=== PATIENT | female | born 1935 | race Caucasian/White ===

== ENCOUNTER 2025-09-12 16:51 | Emergency (ER) | payer MEDICARE, MEDICAID, SELFPAY ==
[2025-09-12 16:51] VITALS: BP 122/87; PULSE 98; RESP 17; TEMP 36.6; O2SAT 98; BMI 51.5
--- OUTSIDE RECORDS SUMMARY | 2025-09-12 16:55 | XMS_ITS | Clinical Summary ---
[facility] Organization [facility] Address [address] Ferrer: Epic Prelude ADT [place] [address] Care Team Providers Care Chain Sales Consultant Name Role Phone Other, Sgf Primary Care Provider Unavailabl e Allergies Active Allergy Reactions Criticality Noted Date Comments Amoxicillin Nausea and Vomiting Low 11/11/2010 Codeine Rash,Nausea and Vomiting Low 11/11/2010 Penicillins Hives High 11/11/2010 Medications acetaminophen (TYLENOL) 325 mg tablet Take 325 mg by mouth every 4 hours as needed. Active levothyroxine 50 mcg tablet Take 50 mcg by mouth daily in the morning. Active clonazePAM (KlonoPIN) 0.5 mg Tablet Take 0.5 mg by mouth. Active apixaban (Eliquis) 5 mg tablet Take by mouth 2 times daily. Active Active Problems Problem Noted Date Diagnosed Date UTI (urinary tract infection) 06/13/2013 Atrial flutter 06/12/2013 Orthostatic hypotension 06/12/2013 Peripheral edema 03/23/2011 Anxiety 01/07/2011 Depression 01/07/2011 Unspecified essential hypertension 01/07/2011 Unspecified disorder of lipoid metabolism 2010 Immunizations Immunization Administration Dates Next Due (PNEUMOVAX 23)(50 YRS UP) PN EUMOCOCCAL POLYSACCHARIDE (PPV23) 0.5 ML, IM 05/07/2008 (TDVAX)(7 YRS UP) TETANUS AN D DIPHTHERIA TOXOIDS, ADSORBED (2 LF OF TETANUS TOXOID AND 2 LF OF DIPHTHERIA TOXOID), 0.5ML (PF), IM 02/24/2001 Influenza Seasonal Unspecified Formulation IM Family History Medical History Relation Name Comments Diabetes Brother 1 Heart Disease Brother 1 High Cholesterol Brother 1 Other Brother 1 osteo arthritis Heart Disease Brother 2 High Cholesterol Brother 2 Other Brother 2 osteo arthritis Thyroid Disease Brother 2 Asthma Brother 3 Diabetes Brother 3 Other Brother 3 osteo arthritis Healthy Daughter 1 Hypertension Daughter 1 Healthy Daughter 2 Healthy Daughter 3 Hypertension Daughter 3 Cancer Father Heart Disease Father Hypertension Father Stroke Maternal Grandmother Asthma Mother Cancer Mother Diabetes Mother Other Mother osteo arthritis Stroke Mother Breast Cancer Sister 1 Diabetes Sister 1 Hypertension Sister 1 Other Sister 1 osteo arthritis Breast Cancer Sister 2 Diabetes Sister 2 Other Sister 2 osteo arthritis Relation Name Status Comments Brother 1 Alive Brother 2 Alive Brother 3 Alive Daughter 1 Alive Daughter 2 Alive Daughter 3 Alive Father Maternal Grandfather Maternal Grandmother Mother Paternal Grandfather Paternal Grandmother Sister 1 Alive Sister 2 Alive Son Social History Tobacco Use Types Packs/Day Years Used Date Smoking Tobacco: Former Cigarettes Q uit: 04/11/1965 Smokeless Tobacco: Never Tobacco Cessation:Counseling Given: Not Answered Alcohol Use Standard Drinks/Week Comments No 0 (1 standard drink = 0.6 oz pur e alcohol) Comments Unknown Sex and Gender Information Value Date Recorded Sex Assigned at Not on file 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 Gender Identity Not on file Sexual Orientation Not on file Last Filed Vital Signs Vital Sign Reading Time Taken Comments Blood Pressure 112/68 10/19/2023 10:33 AM TOP FRAME FITTER Pulse - - Temperature - - Respiratory Rate - - Oxygen Saturation - - Inhaled Oxygen Concentration - - Weight 101.6 kg (224 lb) 10/19/2023 10: 33 AM TOP FRAME FITTER pt reported, pt is unable to stand on scale Height 161.3 cm (5' 3.5 ) 10/19/2023 10 :33 AM TOP FRAME FITTER Body Mass Index 39.06 10/19/2023 10:33 AM TOP FRAME FITTER Plan of Treatment Health Maintenance Due Date Last Done Comments ZOSTER VACCINE (1 of 2) 1987 DTAP/TDAP/TD VACCINES (1 - Tdap) 02/25/2001 02/25/20 OSTEOPOROSIS SCREENING 2002 PNEUMOCOCCAL VACCINE 50+ YEARS (2 of 2 - PCV) 05/07/20 09 05/07/2008 RSV VACCINE (60+ or ) (1 - 1-dose 75+ series) 2012 INFLUENZA VACCINE (#1) 2025 08/28/2009 Insurance [place]ID [place] MEDICARE PART A AND B Care Teams Chain Sales Consultant Relationship Specialty Start Date End Date Other, Sgf NO ADDRESS ON FILE PCP - General 06/12/13
--- OUTSIDE RECORDS SUMMARY | 2025-09-12 16:55 | XMS_ITS | Clinical Summary ---
Author Organization [facility] Address [address] [place] [address] Care Team Providers Care Powder Coater Name Role Phone Other, Sgf Primary Care Provider Unavailabl e Allergies Active Allergy Reactions Criticality Noted Date Comments Amoxicillin Nausea and Vomiting Low 11/11/2010 Codeine Rash,Nausea and Vomiting Low 11/11/2010 Penicillins Hives High 11/11/2010 Medications acetaminophen (TYLENOL) 325 mg Oral tablet Take 325 mg by mouth every 4 hours as needed. Active GLUCOSAM & CHONDROIT-MV & MIN3 (GLUCOSAMINE &UGIRIOGAX-IX-RBY 3 ORAL) Take by mouth. Take 2 tablets by mouth once daily. Active 0mega-3 fatty acids-vitamin E (FISH OIL) 1,000 mg Oral Cap Take 1,000 mg by mouth daily. Active atenolol (TENORMIN) 50 mg Oral tabletIndications :Unspecified essential hypertension Take 1 Tab by mouth daily. 30 Tab 11 2 Active levothyroxine 50 mcg Oral tablet Take 50 mcg by mouth daily river pilot. Active ranitidine (ZANTAC) 150 mg Oral tablet Take 150 mg by mouth 2 times daily. Active clonazePAM (KLONOPIN) 0.5 mg Oral Tab Take 0.5 mg by mouth 3 times daily. Active venlafaxine SR 24 hour (EFFEXOR XR) 150 mg Oral capsule Take 150 mg by mouth daily. Active Active Problems Problem Noted Date Diagnosed Date UTI (urinary tract infection) 06/13/2013 Atrial flutter 06/12/2013 Orthostatic hypotension 06/12/2013 Peripheral edema 03/23/2011 Unspecified essential hypertension 01/07/2011 Depression 01/07/2011 Anxiety 01/07/2011 Unspecified disorder of lipoid metabolism 2010 Immunizations Immunization Administration Dates Next Due (PNEUMOVAX 23)(50 YRS UP) PN EUMOCOCCAL POLYSACCHARIDE (PPV23) 0.5 ML, IM 05/07/2008 (TDVAX)(7 YRS UP) TETANUS AN D DIPHTHERIA TOXOIDS, ADSORBED (2 LF OF TETANUS TOXOID AND 2 LF OF DIPHTHERIA TOXOID), 0.5ML (PF), IM 02/24/2001 Influenza Seasonal Unspecified Formulation IM Family History Medical History Relation Name Comments Asthma Brother 1 Diabetes Brother 1 Other Brother 1 osteo arthritis Heart Disease Brother 2 High Cholesterol Brother 2 Other Brother 2 osteo arthritis Thyroid Disease Brother 2 Diabetes Brother 3 Heart Disease Brother 3 High Cholesterol Brother 3 Other Brother 3 osteo arthritis Healthy Daughter 1 Hypertension Daughter 1 Healthy Daughter 2 Hypertension Daughter 2 Healthy Daughter 3 Cancer Father Heart Disease Father Hypertension Father Stroke Maternal Grandmother Asthma Mother Cancer Mother Diabetes Mother Other Mother osteo arthritis Stroke Mother Breast Cancer Sister 1 Diabetes Sister 1 Other Sister 1 osteo arthritis Breast Cancer Sister 2 Diabetes Sister 2 Hypertension Sister 2 Other Sister 2 osteo arthritis [...] Cigarettes Q uit: 04/11/1965 Smokeless Tobacco: Never Alcohol Use Standard Drinks/Week Comments No 0 (1 standard drink = 0.6 oz pur e alcohol) Comments No Sex and Gender Information Value Date Recorded Sex Assigned at Not on file 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 Gender Identity Not on file Sexual Orientation Not on file Last Filed Vital Signs Vital Sign Reading Time Taken Comments Blood Pressure 125/71 06/14/2013 7:08 AM CDT Pulse 57 06/14/2013 7:08 AM CDT Temperature 35.9 C (96.6 F) 06/14/2013 7:08 AM CDT Respiratory Rate 20 06/14/2013 7:08 AM CDT Oxygen Saturation 99% 06/14/2013 7:08 AM CDT Inhaled Oxygen Concentration - - Weight 107.7 kg (237 lb 6.4 oz) 06/14/2013 6:00 AM CDT Height 162.6 cm (5' 4 ) 06/12/2013 6:01 PM CDT Body Mass Index 40.75 06/12/2013 6:01 PM CDT Plan of Treatment Health Maintenance Due Date Last Done Comments ZOSTER VACCINE (1 of 2) 1987 DTAP/TDAP/TD VACCINES (1 - Tdap) 02/25/2001 02/25/20 PNEUMOCOCCAL VACCINE 50+ YEARS (2 of 2 - PCV) 05/07/2005/07/2008 OSTEOPOROSIS SCREENING 06/29/2011 06/29/2006 RSV VACCINE (60+ or ) (1 - 1-dose 75+ series) 2012 INFLUENZA VACCINE (#1) 2025 08/28/2009 Insurance CARE IMPROVEMENT PLUS [facility] Advance Directives For more information, please contact: [phone] * Full Code (Latest Code Status on File) Date Activated Date Inactivated Comments 06/12/2013 6:06 PM 06/14/2013 1:37 PM Care Teams Powder Coater Relationship Specialty Start Date End Date Other, Sgf NO ADDRESS ON FILE PCP - General 06/12/13
--- NOTE | 2025-09-12 17:20 | CTR_ITS ---
PROCEDURE INFORMATION: Exam: CT Head Without Contrast Exam date and time: 09/12/2025 6:26 PM Age: 89 years old Clinical indication: Other: Hearing voices, psych TECHNIQUE: Imaging protocol: Computed tomography of the head without contrast. Radiation optimization: All CT scans at this facility use at least one of these dose optimization techniques: automated exposure control; mA and/or kV adjustment per patient size (includes targeted exams where dose is matched to clinical indication); or iterative reconstruction. COMPARISON: No relevant prior studies available. RADIATION DOSE METRICS: Total DLP (mGy-cm): 1098.53 FINDINGS: Brain: No acute hemorrhage, edema, or mass effect. Generalized age-related cerebral volume loss. Numerous small parafalcine lipomas. No extracranial collection. Cerebral ventricles: No hydrocephalus. Paranasal sinuses: Visualized sinuses are unremarkable. No fluid levels. Mastoid air cells: Visualized mastoid air cells are well aerated. Orbital cavities: Right scleral banding. Bilateral lens replacements. Bones: Unremarkable. No acute fracture. Soft tissues: Unremarkable. CT/CT head wo con* [id number] IMPRESSION: No acute hemorrhage, edema, or mass effect.
--- NOTE | 2025-09-12 17:20 | ECG_ITS ---
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 Measurements Intervals [employer] Rate: 104 P: 0 IN: 0 QRS: 71 QRSD: 94 T: 51 QT: 377 QTc: 496 Interpretive Statements ATRIAL FIBRILLATION WITH RAPID VENTRICULAR RESPONSE LOW QRS VOLTAGE IN PRECORDIAL LEADS [QRS DEFLECTION < 1.0 mV IN CHEST LEADS] ST DEVIATION AND MODERATE T-WAVE ABNORMALITY, CONSIDER ANTEROLATERAL ISCHEMIA [-0.1+ mV T-WAVE IN V3-V6] No previous ECG available for comparison Electronically Signed On 09-12-2025 23:50:49 BURLESQUE DANCER by Elvin Lopez M.D. [email or web address]
--- NOTE | 2025-09-12 17:20 | XRR_ITS ---
PROCEDURE INFORMATION: Exam: XR Chest Exam date and time: 09/12/2025 5:29 PM Age: 89 years old Clinical indication: Other: Weakness; Additional info: Psych TECHNIQUE: Imaging protocol: Radiologic exam of the chest. Views: 1 view. COMPARISON: No relevant prior studies available. FINDINGS: Lungs: Clear lungs. Pleural spaces: No pneumothorax or pleural effusion. Heart/Mediastinum: Cardiac silhouette is normal. Bones/joints: Unremarkable. Soft tissues: Left chest wall surgical clips. XR/XR chest 1V portable [id number] IMPRESSION: No acute findings.
[2025-09-12 17:53] LABS: Hematocrit 42.1 % (36-47); Hemoglobin 13.50 g/dL (11.27-16.99); Mean Corpuscular HGB Conc 32.1 g/dL (30-55); Mean Corpuscular Hemoglobin 28.9 pg (27-33); Mean Corpuscular Volume 90.1 fl (85-98); Nucleated Red Blood Cells % 0 %; Platelet Count 197 10^3/cmm (157-399); Red Blood Count 4.67 10^6/uL (3.85-5.65); White Blood Count 4.98 10^3/uL (3.29-11.43)
[2025-09-12 18:17] LABS: Glucose Urine UA Negative (Normal); Nitrate Urine Negative (Negative); Specific Gravity, Urine 1.008 (1.005-1.030)
[2025-09-12 18:20] LABS: Add Urine Microscopic? YES
[2025-09-12 18:23] LABS: PCP Screen Urine Negative (Negative)
[2025-09-12 18:24] LABS: Acetaminophen < 5.0 ug/mL (10-30); Alanine Aminotransferase 11 U/L (0-33); Albumin Level 4.0 g/dL (3.5-5.2); Alcohol Level < 10 mg/dL (0-10); Alkaline Phosphatase 97 U/L (35-105); Anion Gap 16.4 (5-19); Aspartate Amino Transferase 19 U/L (0-32); Blood Urea Nitrogen 15 mg/dL (8-23); Calcium 9.2 mg/dL (8.5-10.5); Carbon Dioxide 26 mmol/L (22-29); Chloride 103 mmol/L (98-107); Creatinine Clr Calc Pharmacy 48.6932; Globulin 3.3 g/dL (1.3-4.6); Glucose 132 mg/dL (65-115); Osmolality Calculated 295 mOsm/kg (285-295); Potassium 4.4 mmol/L (3.5-5.1); Salicylate < 0.3 mg/dL (3-10); Sodium 141 mmol/L (136-145); Thyroid Stimulating Hormone 1.95 uIU/mL (0.27-4.20); Total Protein 7.3 g/dL (6.6-8.7)
[2025-09-12 18:41] LABS: Respiratory Syncytial Virus Ce NEGATIVE (Negative); SARS-CoV-2 PCR NEGATIVE (Negative)
--- NOTE | 2025-09-12 18:55 | ED.C_ITS ---
HPI - Psych 2 General: Chief Complaint: Psychiatric Symptoms Stated Complaint: Hearing voices x 2 days Source: patient Mode of arrival: ambulatory Limitations: no limitations History of Present Illness: Patient is a pleasant 89-year-old female with history of dementia coming to the emergency department from custodial due to hearing voices for the past couple of months. Patient is alert and oriented x 4, she tells me that she has been hearing voices that have been worsening, and notes that recently they have been telling her to harm herself. She also fears that the voices are also going to harm her. Does not report any visual hallucinations. She states that the voices a man, and is the voice of her first . States that the voice is very punitive and yells at her a lot. She wears headphones but states that she is unable to block out the noise. No medication changes reported. She does not report any HI. No other symptoms noted at this time, her vitals are stable. She does not appear toxic in any way. No documented psychiatric history. MD complaint: other (Hallucinations) Onset (ago): month(s) Associated symptoms: Reports auditory hallucinations; Deny visual hallucinations, homicidal ideation or suicidal ideation Review of Systems 2 General: Reports: 10 or more systems reviewed and unremarkable except in HPI and below Const: Denies: fever(s), chills or fatigue Eyes: Denies: change in vision ENMT: Denies: throat pain, ear or mastoid pain or nasal discharge Card: Denies: chest pain, palpitations, swelling of feet/ankles or lightheadedness Resp: Denies: dyspnea, productive cough or wheezing GI: Denies: abdominal pain, nausea, vomiting, diarrhea or constipation : Denies: flank pain, difficulty voiding, dysuria or urinary frequency Musc: Denies: neck pain, back pain or joint pain Skin/Breast: Denies: rash Neuro: Denies: headache(s), numbness in extremities or weakness in extremities Psych: Reports: auditory hallucinations; Denies: visual hallucinations, tactile hallucinations, suicidal ideation or homicidal ideation Physical Exam 2 Const: COMMON NORMALS: no acute distress, patient oriented x3 and no limitations GENERAL APPEARANCE: cooperative, comfortable and well developed ORIENTATION/CONSCIOUSNESS: Yes awake, Yes oriented to person, Yes oriented to place and Yes oriented to time HENMT: COMMON NORMALS: normocephalic, atraumatic and hearing grossly normal bilaterally HEAD & SCALP: normocephalic and atraumatic Eye: COMMON NORMALS: Equal, round and reactive pupils present, EOMs intact bilaterally and conjunctivae normal CONJUNCTIVA: Yes conjunctivae normal P UPIL: Yes Equal, round and reactive pupils present Neck/C-Spine: COMMON NORMALS: full ROM, supple and no JVD Resp: COMMON NORMALS: normal respiratory effort, No retractions, No use of accessory muscles and clear to auscultation bilaterally AUSCULTATION: clear to auscultation bilaterally Cardio: COMMON NORMALS: no JVD, regular rate, regular rhythm, No clicks present (Cardio), No murmurs present (Cardio) and No rub (Cardio) RATE: r egular rate RHYTHM: regular rhythm Extremity: COMMON NORMALS: normal to inspection, full ROM and capillary refill normal Neuro: COMMON NORMALS: patient oriented x3, moves all extremities, no focal motor deficits and no sensory deficits noted SENSORIUM/ORIENTATION: Yes oriented to person, Yes oriented to place and Yes oriented to time Psych: COMMON NORMALS: mental status grossly normal and Normal thought process present THOUGHT PROCESS: Normal thought process present THOUGHT CONTENT: N o Suicidality present, No Homicidality present and Yes Hallucination(s) present auditory Skin: COMMON NORMALS: no rashes or lesions noted GENERAL SKIN EXAM: no rashes or lesions noted Course 2 Vital Signs: Vital signs: Vital Signs Temperature 97.8 F 09/12/25 16:51 Pulse Rate 98 09/12/25 16:51 Respiratory Rate 17 09/12/25 16:51 Blood Pressure 122/87 09/12/25 16:51 Pulse Oximetry 98 09/12/25 16:51 Oxygen Delivery Me thod Room Air 09/12/25 16:51 [facility] - Psych Medical Decision Making Patient brought in from custodial by EMS for auditory loose nations that was bothering her, and they are command hallucinations telling her to harm herself and she fears that they are going to harm her. History of dementia but she is alert and oriented x 4. No issues by her lab work, head CT, chest x-ray, or EKG other than A-fib. She will be transferred to geriatric psych facility at [place] for further evaluation. Lab Data 09/12/25 17:41 09/12/25 17:41 Radiology Impressions Chest X-Ray 09/12/25 17:20 IMPRESSION: No acute findings. Head CT 09/12/25 17:20 IMPRESSION: No acute hemorrhage, edema, or mass effect. Laboratory Results WBC 4.98 10^3/uL (3.29-11.43) 09/12/25 17:41 RBC 4.67 10^6/uL (3.85-5.65) 09/12/25 17:41 Hgb 13.50 g/dL (11.27-16.99) 09/12/25 17:41 Hct 42.1 % (36-47) 09/12/25 17:41 MCV 90.1 fl (85-98) 09/12/25 17:41 MCH 28.9 pg (27-33) 09/12/25 17:41 MCHC 32.1 g/dL (30-55) 09/12/25 17:41 RDW 13.2 % (12.1-15.1) 09/12/25 17:41 Plt Count 197 10^3/cmm (157-399) 09/12/25 17:41 MPV 12.5 fL (7.4-10.4) H 09/12/25 17:41 Neut % (Auto) 48.7 % 09/12/25 17:41 Lymph % (Auto) 35.9 % 09/12/25 17:41 [place] % (Auto) 12.4 % 09/12/25 17:41 Eos % (Auto) 2.4 % 09/12/25 17:41 Baso % (Auto) 0.4 % 09/12/25 17:41 Neut # (Auto) 2.42 10^3/uL (1.8-7.7) 09/12/25 17:41 Lymph # (Auto) 1.8 10^3/uL (0.8-4.8) 09/12/25 17:41 [place] # (Auto) 0.6 10^3/uL (0.2-0.9) 09/12/25 17:41 Eos # (Auto) 0.1 10^3/uL (0.0-0.8) 09/12/25 17:41 Baso # (Auto) 0.0 10^3/uL (0.0-0.1) 09/12/25 17:41 Nucleated RBC % (auto) 0 % 09/12/25 17:41 Nucleated RBCs # 0.0 /100WBC 09/12/25 17:41 Sodium 141 mmol/L (136-145) 09/12/25 17:41 Potassium 4.4 mmol/L (3.5-5.1) 09/12/25 17:41 Chloride 103 mmol/L (98-107) 09/12/25 17:41 Carbon Dioxide 26 mmol/L (22-29) 09/12/25 17:41 Anion Gap 16.4 (5-19) 09/12/25 17:41 BUN 15 mg/dL (8-23) 09/12/25 17:41 Creatinine 1.1 mg/dL (0.5-0.9) H 09/12/25 17:41 GFR Calculation Not Reportable 09/12/25 17:41 Glucose 132 mg/dL (65-115) H 09/12/25 17:41 Calculated Osmolality 295 mOsm/kg (285-295) 09/12/25 17:41 Calcium 9.2 mg/dL (8.5-10.5) 09/12/25 17:41 Total Bilirubin 0.4 mg/dL (0.15-1.2) 09/12/25 17:41 AST 19 U/L (0-32) 09/12/25 17:41 ALT 11 U/L (0-33) 09/12/25 17:41 Alkaline Phosphatase 97 U/L (35-105) 09/12/25 17:41 Total Protein 7.3 g/dL (6.6-8.7) 09/12/25 17:41 Albumin 4.0 g/dL (3.5-5.2) 09/12/25 17:41 Globulin 3.3 g/dL (1.3-4.6) 09/12/25 17:41 TSH 1.95 uIU/mL (0.27-4.20) 09/12/25 17:41 Urine Color Yellow (Yellow) 09/12/25 18:05 Urine Appearance Clear (CLEAR) 09/12/25 18:05 Urine pH 5.5 (5-7) 09/12/25 18:05 Ur Specific [place] 1.008 (1.005-1.030) 09/12/25 18:05 Urine Protein Negative (Negative) 09/12/25 18:05 Urine Glucose (UA) Negative (Normal) 09/12/25 18:05 Urine Ketones Negative (Negative) 09/12/25 18:05 Urine Blood Negative (Negative) 09/12/25 18:05 Urine Nitrate Negative (Negative) 09/12/25 18:05 Urine Bilirubin Negative (Negative) 09/12/25 18:05 Urine Urobilinogen 0.2 mg/dL (Negative) 09/12/25 18:05 Ur Leukocyte Esterase Negative (Negative) 09/12/25 18:05 Urine RBC 0-2 /hpf (0-2) 09/12/25 18:05 Urine WBC 0-5 /hpf (0-5) 09/12/25 18:05 Ur Squamous Epith Cells 0-5 /hpf (0-5) 09/12/25 18:05 Amorphous Sediment Not Reportable 09/12/25 18:05 Urine Bacteria None seen /hpf (NONE) 09/12/25 18:05 Hyaline Casts 0-4 /lpf H 09/12/25 18:05 Salicylates < 0.3 mg/dL (3-10) L 09/12/25 17:41 Urine Opiates Screen Negative ng/mL (Negative) 09/12/25 18:05 Acetaminophen < 5.0 ug/mL (10-30) L 09/12/25 17:41 Ur Barbiturates Screen Negative ng/mL (Negative) 09/12/25 18:05 Ur Phencyclidine Scrn Negative ng/mL (Negative) 09/12/25 18:05 Ur Amphetamines Screen Negative ng/mL (Negative) 09/12/25 18:05 U Benzodiazepines Scrn Negative ng/mL (Negative) 09/12/25 18:05 Urine Cocaine Screen Negative ng/mL (Negative) 09/12/25 18:05 U Marijuana (THC) Screen Negative ng/mL (Negative) 09/12/25 18:05 Ethyl Alcohol < 10 mg/dL (0-10) 09/12/25 17:41 Influenza A (PCR) Negative (Negative) 09/12/25 17:33 Influenza Type B (PCR) Negative (Negative) 09/12/25 17:33 RSV (PCR) Negative (Negative) 09/12/25 17:33 SARS-CoV-2 (PCR) Negative (Negative) 09/12/25 17:33 All radiology interpretation(s) finalized by discharge Discharge Plan Discharge Patient Disposition: Xfer Psychiatric Hosp Clinical Impression: Dementia Qualifiers: Dementia type: unspecified type Dementia severity: unspecified severity D ementia behavioral or psychological symptom: with psychotic disturbance Q ualified Code(s): F03.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
[2025-09-12 21:42] VITALS: BP 127/81; PULSE 82; O2SAT 99
== END 2025-09-12 21:43 ==
PROVIDERS: Emergency Provider Physician Assistant; PCP Internal Medicine
DX: F03.92 Unspecified dementia, unspecified severity, with psychotic disturbance (principal); Z11.52 Encounter for screening for COVID-19
CPT/HCPCS: 36415; 70450; 71045; 80053; 80306; 80307; 81001; 84443; 85025; 87637; 93005; 99285